=== PATIENT | female | born 1960 | race Caucasian/White ===

== ENCOUNTER → 2024-06-04 11:20 | Outpatient (REF) | payer BC, SELFPAY | LOC: WDC 11:20 | PROVIDERS: ATTENDING PHYSICIAN Nurse Practitioner | DX: Z12.31 Encounter for screening mammogram for malignant neoplasm of breast (principal) | CPT/HCPCS: 77063; 77067 ==

== ENCOUNTER → 2025-06-10 13:14 | Outpatient (REF) | payer BC, SELFPAY | LOC: WDC 13:14 | PROVIDERS: ATTENDING PHYSICIAN Nurse Practitioner | DX: Z12.31 Encounter for screening mammogram for malignant neoplasm of breast (principal) | CPT/HCPCS: 77063; 77067 ==